=== PATIENT | female | born 1945 | race Caucasian/White ===

== ENCOUNTER 2016-08-01 13:23 | Day surgery (SDC) | payer MEDICARE ==
--- NOTE | ~2016-08-01 | EGD ---
EGD REPORT [facility] [address] [place]. [address] NAME: ELZA RUELAS : [birth year] STATUS : REG [facility] [place] PAT#: [id number] AGE: 70 ADM/REG DATE : 08/01/16 MR#: [id number] REPORT SERV DATE: 08/01/16 DICTATED BY: JOHN PHAM DATE: 08/01/16 REPORT STATUS : Draft TRANSCRIBED BY: [facility] DATE: 08/01/16 Endoscopy Center Patient Name: Elza Ruelas Date of : 1945 Attending MD: FIDELIA PHAM MD Procedure Date No Time: 08/01/2016 Procedure: Colonoscopy Indications: Chronic diarrhea Medicines: See the Anesthesia note for documentation of the administered medications Complications: No immediate complications. Estimated blood loss: None. Procedure: Pre-Anesthesia Assessment: - ASA Grade Assessment: II - A patient with mild systemic disease. - Prior to the procedure, a History and Physical was performed, and patient medications and allergies were reviewed. The patient's tolerance of previous anesthesia was also reviewed. The risks and benefits of the procedure and the sedation options and risks were discussed with the patient. All questions were answered, and informed consent was obtained. Prior Anticoagulants: The patient has taken no previous anticoagulant or antiplatelet agents. After reviewing the risks and benefits, the patient was deemed in satisfactory condition to undergo the procedure. After I obtained informed consent, the scope was passed under direct vision. Throughout the procedure, the patient's blood pressure, pulse, and oxygen saturations were monitored continuously. The PCF [id number] was introduced through the anus and advanced to the cecum, identified by appendiceal orifice and ileocecal valve. The ileocecal valve, appendiceal orifice and rectum were photographed. The entire colon was examined. The colonoscopy was performed without difficulty. The patient tolerated the procedure well. The quality of the bowel preparation was adequate. Findings: The perianal and digital rectal examinations were normal. The colon (entire examined portion) appeared normal. This was biopsied with a cold forceps for histology. Non-bleeding internal hemorrhoids were found during retroflexion and were Grade I (internal hemorrhoids that do not prolapse). Impression: - The entire examined colon is normal. Biopsied. EGD REPORT [address] [address] NAME: ELZA RUELAS : [birth year] STATUS : REG [facility]#: [id number] AGE: 70 ADM/REG DATE : 08/01/16 MR#: [id number] REPORT SERV DATE: 08/01/16 DICTATED BY: JOHN PHAM DATE: 08/01/16 REPORT STATUS : Draft TRANSCRIBED BY: [employer] DATE: 08/01/16 - Non-bleeding internal hemorrhoids. Recommendation: - Patient has a contact number available for emergencies. The signs and symptoms of potential delayed complications were discussed with the patient. Return to normal activities tomorrow. Written discharge instructions were provided to the patient. - Regular diet. - Discharge patient to home. - Continue present medications. - Await pathology results. - Repeat colonoscopy is not recommended for surveillance. Procedure Code(s): --- Professional --- 24850, Colonoscopy, flexible, proximal to splenic flexure; with biopsy, single or multiple Diagnosis Code(s): --- Professional --- K64.0, First degree hemorrhoids K52.9, Noninfective gastroenteritis and colitis, unspecified CPT copyright 2013 [employer]. All rights reserved. The codes documented in this report are preliminary and upon seat trimmer review may be revised to meet current compliance requirements. FIDELIA PHAM MD 08/01/2016 4:21 PM This report has been signed electronically. Number of Addenda: 0 Note Initiated On: 08/01/2016 3:43 PM Scope Withdrawal Time 0 hours 6 minutes 38 seconds [id number] [address] [id number]
--- NOTE | ~2016-08-01 | EGD ---
EGD REPORT [facility] [address] [place] [address] [address] NAME: ELZA RUELAS : 41 STATUS : REG [facility] [place] PAT#: [id number] AGE: 70 ADM/REG DATE : 08/01/16 MR#: [id number] REPORT SERV DATE: 08/01/16 DICTATED BY: JOHN PHAM DATE: 08/01/16 REPORT STATUS : Draft TRANSCRIBED BY: [facility] DATE: 08/01/16 Endoscopy Center Patient Name: Elza Ruelas Date of : 1945 Attending MD: FIDELIA PHAM MD Procedure Date No Time: 08/01/2016 Procedure: Upper GI endoscopy Indications: Epigastric abdominal pain, Heartburn, Nausea Referring MD: RADHA BARNES MD Medicines: See the Anesthesia note for documentation of the administered medications Complications: No immediate complications. Estimated blood loss: None. Procedure: Pre-Anesthesia Assessment: - ASA Grade Assessment: II - A patient with mild systemic disease. - Prior to the procedure, a History and Physical was performed, and patient medications and allergies were reviewed. The patient's tolerance of previous anesthesia was also reviewed. The risks and benefits of the procedure and the sedation options and risks were discussed with the patient. All questions were answered, and informed consent was obtained. Prior Anticoagulants: The patient has taken no previous anticoagulant or antiplatelet agents. After reviewing the risks and benefits, the patient was deemed in satisfactory condition to undergo the procedure. After obtaining informed consent, the endoscope was passed under direct vision. Throughout the procedure, the patient's blood pressure, pulse, and oxygen saturations were monitored continuously. The GIF H190 [id number] was introduced through the mouth, and advanced to the second part of duodenum. The upper GI endoscopy was accomplished without difficulty. The patient tolerated the procedure well. Findings: The examined duodenum was normal. Diffuse moderate inflammation characterized by erythema was found in the stomach. Biopsies were taken with a cold forceps for histology. The cardia and gastric fundus were normal on retroflexion. The examined esophagus was normal. Impression: - Normal examined duodenum. - Gastritis. Biopsied. - Normal esophagus. EGD REPORT [address] [address] NAME: ELZA RUELAS : 41 STATUS : [facility] [place] PAT#: [id number] AGE: 70 ADM/REG DATE : 08/01/16 MR#: [id number] REPORT SERV DATE: 08/01/16 DICTATED BY: JOHN PHAM DATE: 08/01/16 REPORT STATUS : Draft TRANSCRIBED BY: [employer] DATE: 08/01/16 Recommendation: - Patient has a contact number available for emergencies. The signs and symptoms of potential delayed complications were discussed with the patient. Return to normal activities tomorrow. Written discharge instructions were provided to the patient. - Regular diet. - Discharge patient to home. - Continue present medications. - Await pathology results. Procedure Code(s): --- Professional --- 92524, Esophagogastroduodenoscopy, flexible, transoral; with biopsy, single or multiple Diagnosis Code(s): --- Professional --- K29.70, Gastritis, unspecified, without bleeding R10.13, Epigastric pain R12, Heartburn R11.0, Nausea CPT copyright 2013 [employer]. All rights reserved. The codes documented in this report are preliminary and upon sales and service engineer review may be revised to meet current compliance requirements. FIDELIA PHAM MD 08/01/2016 4:08 PM This report has been signed electronically. Number of Addenda: 0 Note Initiated On: 08/01/2016 3:52 PM Scope Withdrawal Time 0 hours 0 minutes 0 seconds [address] [place] [id number]
[~2016-08-01 13:23] MED LIST: AMIT50 PO; CELEXA20 PO; COZ50 PO; L20 PO; LEVOTHROID125 MCG PO; PRILOSEC40 MG PO; SINGULAIR1 PO; ULTRAM50 PO
== END 2016-08-01 23:59 | disposition home or self-care (01) ==
LOC: DMU 13:23
PROVIDERS: Internal Medicine Gastroenterology
PROC: 0DBE8ZX Excision of Large Intestine, Via Natural or Artificial Opening Endoscopic, Diagnostic (ICD-10-PCS; principal; 2016-08-01 14:30)
DX: K52.9 Noninfective gastroenteritis and colitis, unspecified (principal); K64.0 First degree hemorrhoids; K29.70 Gastritis, unspecified, without bleeding; R12 Heartburn; R10.13 Epigastric pain; R11.0 Nausea; I10 Essential (primary) hypertension; G47.33 Obstructive sleep apnea (adult) (pediatric); Z88.2 Allergy status to sulfonamides; Z88.8 Allergy status to other drugs, medicaments and biological substances
CPT/HCPCS: 88305; J0360